=== PATIENT | male | born 1935 | race Caucasian/White ===

== ENCOUNTER 2022-07-03 08:49 | Outpatient (CLI) | payer SELFPAY | END 2022-07-03 08:50 | disposition critical access hospital (66) | LOC: EMS 08:49 | DX: Z04.1 Encounter for examination and observation following transport accident (principal); R53.1 Weakness; R26.81 Unsteadiness on feet | CPT/HCPCS: A0425; A0429 ==

== ENCOUNTER 2022-07-03 09:01 | Emergency (ER) | payer SELFPAY ==
[2022-07-03] MEDS ORDERED: SODIUM CHLORIDE 0.9% 1,000 ML IV STA (09:11)
[2022-07-03 09:27] LABS: BASOPHILS # (AUTO) 0.1 10^3/uL (0.0-0.1); BASOPHILS % (AUTO) 0.7 %; EOSINOPHILS # (AUTO) 0.1 10^3/uL (0.0-0.7); EOSINOPHILS % (AUTO) 0.7 %; HCT - HEMATOCRIT 41.9 % (42.0-52.0); HGB - HEMOGLOBIN 13.8 g/dL (14.0-18.0); LYMPHOCYTES # (AUTO) 1.9 10^3/uL (1.5-3.5); LYMPHOCYTES % (AUTO) 17.3 %; MEAN CORPUSCULAR HEMOGLOBIN 32.2 pg (27.0-31.0); MEAN CORPUSCULAR HGB CONC 32.9 g/dL (32.0-36.0); MEAN CORPUSCULAR VOLUME 97.9 fL (80.0-94.0); MEAN PLATELET VOLUME 10.7 fL (7.4-11.4); MONOCYTES # (AUTO) 0.6 10^3/uL (0.0-1.0); MONOCYTES % (AUTO) 5.3 %; NEUTROPHILS # (AUTO) 8.1 10^3/uL (1.5-6.6); NEUTROPHILS % (AUTO) 75.2 %; PLT - PLATELET COUNT 216 10^3/uL (130-450); RED BLOOD COUNT 4.28 10^6/uL (4.70-6.10); RED CELL DISTRIBUTION WIDTH 14.8 % (12.0-15.0); WHITE BLOOD COUNT 10.8 x10^3/uL (4.8-10.8)
[2022-07-03 09:37] LABS: ALBUMIN 4.2 g/dL (3.2-5.5); ALBUMIN/GLOBULIN RATIO 1.1 (1.0-2.2); CALCIUM 9.2 mg/dL (8.5-10.3); CREATININE 1.1 mg/dL (0.6-1.2); POTASSIUM 4.2 mmol/L (3.5-5.0); TOTAL PROTEIN 8.2 g/dL (6.7-8.2)
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
[2022-07-03 12:29] VITALS: BP 175/85
== END 2022-07-03 14:33 | disposition home or self-care (01) ==
LOC: EDUNIT# → ED 09:01
DX: Z04.3 Encounter for examination and observation following other accident (principal); R53.1 Weakness
CPT/HCPCS: 36415; 80053; 83690; 85025; 99283

== ENCOUNTER 2022-07-24 18:32 | Outpatient (CLI) | payer SELFPAY | END 2022-07-24 18:33 | disposition critical access hospital (66) | LOC: EMS 18:32 | DX: S00.81XA Abrasion of other part of head, initial encounter (principal); R51.9 Headache, unspecified; M25.532 Pain in left wrist; W01.0XXA Fall on same level from slipping, tripping and stumbling without subsequent striking against object, initial encounter; Y93.01 Activity, walking, marching and hiking; Y92.414 Local residential or business street as the place of occurrence of the external cause | CPT/HCPCS: A0425; A0429 ==

== ENCOUNTER 2022-07-24 18:49 | Emergency (ER) | payer SELFPAY ==
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
--- NOTE | 2022-07-24 19:47 | CT Report ---
PROCEDURE: HEAD WO INDICATIONS: fall, struck head; confused TECHNIQUE: Noncontrast 4.5 mm thick angled axial sections acquired from the foramen magnum to the vertex. For r adiation dose reduction, the following was used: automated exposure control, adjustment of mA and/or kV according to patient size. COMPARISON: None. FINDINGS: Image quality: Adequate. CSF spaces: Basal cisterns are patent. No extra-axial fluid collections. Ventricles are normal in size and shape. Brain: No midline shift. Ill-defined periventricular and deep white matter hypodensities, probably m icrovascular ischemic change. Rounded region of hypodensity/likely edema within the left parieto-occi pital lobe, approximately 4.3 cm measured in the axial plane.. Skull and face: Calvarium and visualized facial bones are intact. Sinuses: Visualized sinuses and mastoids are clear. IMPRESSION: 1. No intracranial hemorrhage identified. 2. Approximately 4.3 cm rounded region of hypodensity/edema within the left parietal occipital lobe, nonspecific. Differential considerations would include but are not limited to acute/subacute infarct, abscess, mass, metastatic disease. MRI of the brain with and without contrast may be helpful for fur ther evaluation if clinically indicated. Reviewed by: You Freeman MD on 07/24/2022 7:46 PM PST Approved by: You Freeman MD on 07/24/2022 7:46 PM PST Station ID: [id number]
--- NOTE | 2022-07-24 19:53 | CT Report ---
PROCEDURE: CERVICAL SPINE WO INDICATIONS: fall, struck head; VELIZ/neck pain TECHNIQUE: Noncontrast 3 mm thick sections acquired from the skull base to the T4 level. Sagittal and coronal r eformats were then constructed. For radiation dose reduction, the following was used: automated exp osure control, adjustment of mA and/or kV according to patient size. COMPARISON: None. FINDINGS: Image quality: Adequate. Bones: No acute fractures or dislocations. Visualized superior ribs are intact. Severe multilevel degenerative changes of the cervical spine. Soft tissues: Prevertebral soft tissues are normal in thickness. No apical pneumothoraces. IMPRESSION: No acute cervical spine fracture identified. Reviewed by: You Freeman MD on 07/24/2022 7:51 PM PST Approved by: You Freeman MD on 07/24/2022 7:51 PM PST Station ID: [id number]
[2022-07-24 20:26] VITALS: BP 151/66
== END 2022-07-24 21:00 | disposition home or self-care (01) ==
LOC: EDUNIT# → ED 18:49
DX: S09.90XA Unspecified injury of head, initial encounter (principal); W18.30XA Fall on same level, unspecified, initial encounter; Y93.01 Activity, walking, marching and hiking
CPT/HCPCS: 99283; 99284

== ENCOUNTER 2022-09-24 18:50 | Outpatient (CLI) | payer SELFPAY | END 2022-09-24 23:59 | disposition E | LOC: EMS 18:50 ==